=== PATIENT | male | born 1955 | race Caucasian/White ===

== ENCOUNTER 2019-06-03 15:34 | Inpatient (IN) | payer MEDICARE, OTHER ==
[~2019-06-03] VITALS: Ht 185.4 cm; Wt 83.9 kg
[~2019-06-03 15:34] MED LIST: LEXAPRO
[2019-06-03] MEDS ORDERED: ASPI81TA31 PO (15:42)
--- NOTE | 2019-06-03 15:59 | NUR ---
Swab for flu collected and sent to lab.
--- NOTE | 2019-06-03 16:02 | NUR ---
Pt out of ER for CT.
[2019-06-03 16:06] LABS: BASOPHILS % (AUTO) 0.1 % (0.0-2.0); EOSINOPHILS # (AUTO) 0.2 K/uL (0.0-0.7); EOSINOPHILS % (AUTO) 2.1 % (0.0-7.0); HEMATOCRIT 40.9 % (36.7-47.1); HEMOGLOBIN 13.6 g/dL (12.5-16.3); LYMPHOCYTES # (AUTO) 0.5 K/uL (20.0-40.0); LYMPHOCYTES % (AUTO) 4.7 % (20.5-51.5); MEAN CORPUSCULAR HEMOGLOBIN 30.4 uug (23.8-33.4); MEAN CORPUSCULAR HGB CONC 33 g/dL (32.5-36.3); MEAN CORPUSCULAR VOLUME 91.3 fL (73.0-96.2); MONOCYTES # (AUTO) 0.7 K/uL (2.0-10.0); MONOCYTES % (AUTO) 6.9 % (0.0-11.0); NEUTROPHILS % (AUTO) 86.2 % (38.5-71.5); PLATELET COUNT (AUTO) 248 K/uL (152-348); RED BLOOD CELL COUNT(AUTO) 4.48 MIL/uL (4.06-5.63); WHITE BLOOD COUNT (AUTO) 10.5 K/uL (3.6-10.2)
[2019-06-03 16:14] LABS: CREATININE 1.1 mg/dL (0.6-1.3); POTASSIUM 3.8 mmol/L (3.5-5.1)
--- NOTE | 2019-06-03 16:18 | NUR ---
Pt back from CT, resting in bed, VSS. Family at the bedside.
[2019-06-03 16:20] LABS: BILIRUBIN,DIRECT 0.1 mg/dL (0.0-0.2); BILIRUBIN,TOTAL 0.6 mg/dL (0.2-1.0); TOTAL PROTEIN, SERUM 6.4 g/dL (6.4-8.2)
[2019-06-03] MEDS ORDERED: HYDR12.5 PO (17:17)
[2019-06-03] MEDS ORDERED: ATOR20TA PO (17:17)
[2019-06-03] MEDS ORDERED: ESCI10TA PO (17:17)
[2019-06-03 18:00] VITALS: BP 143/67
[2019-06-03] MEDS ORDERED: ACETAMINOPHEN 325 MG TABLET PO PRN (18:15)
[2019-06-03] MEDS ORDERED: ONDANSETRON 4 MG/2 ML VIAL IV PRN (18:15)
[2019-06-03] MEDS ORDERED: TEMAZEPAM 15 MG CAPSULE PO PRN (18:15)
[2019-06-03] MEDS ORDERED: ESZO3TAB27 PO (18:58)
[2019-06-03 19:15] VITALS: BP 145/75
[2019-06-03] MEDS ORDERED: TEMAZEPAM 7.5 MG CAPSULE PO PRN (19:30)
--- NOTE | 2019-06-03 20:00 | NUR ---
Received report from AM nurse, patient is newly admitted to the unit. Complete admission orders pending. Pt is AAOx4, with at bedside. Patient with complaints of nausea and episode of vomiting x 1, large amount of undigested food and liquid. Pt verbalized that it was what he was feeling before he passed out initially this morning. Denied any new food/diet, family ate the same food from night prior and was not sick. Able to walk to the bathroom but noted very pale and verbalizes feeling cold. Instructed patient and to ask for assistance during ambulation since patient is still at risk for falls/syncope. VS taken and within normal parameters. Sinus [address] Ayan Diana notified via message. Dr. Diana came and assessed patient and discussed plan of care to patient/. New orders noted and carried out. Zofran 4mg given via IV. Pending fluids via IV per MD orders. Will continue to monitor patient, will perform neuro checks secondary to the fall.
[2019-06-03 20:15] VITALS: BP 140/76
[2019-06-03] MEDS ORDERED: POTASSIUM CHLORIDE 20 MEQ in IV 1/2NS 1000 ML 1,000 ML IV PRN (20:30)
[2019-06-03] MEDS ORDERED: ATORVASTATIN 20 MG TABLET PO SCH (21:00)
[2019-06-03] MEDS ORDERED: DOCUSATE SODIUM 100 MG CAPSULE PO SCH (21:00)
[2019-06-03] MEDS ORDERED: ESCITALOPRAM OXALATE 10 MG TABLET PO SCH (21:00)
[2019-06-04] VITALS (9 sets, daily range): BP systolic 107–132; BP diastolic 60–67
--- NOTE | 2019-06-04 00:57 | NUR ---
Patient slept at around 2130, aware of NPO status after midnight for CT of abdomen in AM. However, during 0000 rounds, patient's IV appeared pulled out,, replaced site. Placed on L FA, 22 G, and IVF of 20 meqs of K + 1/2 NS running at 60cc/hr. Patient noted with red and flushed face, slightly warm to touch. Vital signs taken and no fever, T: 98.4. BP slightly lower than initial readings from SBP 140 to SBP 110/60. Pt verbalized that he is not nauseated anymore, but does feel the urge to cough. Cough is non productive. Lung sounds clear. On-call paged. Dr. Nunez called back with new orders. Noted and carried out. Pt remains Sinus rhythm on tele at 84. Neuro check done, pt appears to be within baseline level. Will continue to monitor.
[2019-06-04] MEDS ORDERED: GUAIFENESIN/CODEINE 5 ML LIQUID UDC PO PRN (01:00)
--- NOTE | 2019-06-04 05:43 | NUR ---
No further coughing noted. Able to sleep intermittently. No complaints of nausea/vomiting. IVF running as ordered. Neuro checks done. Orthostatic blood pressure not checked, since patient stayed in bed throughout the night and wanted to rest. Will check when patient is up. Fall precautions in place. Bed kept low and bed alarm on. Will continue to monitor.
[2019-06-04 06:37] LABS: BASOPHILS % (AUTO) 0.3 % (0.0-2.0); EOSINOPHILS % (AUTO) 0.3 % (0.0-7.0); HEMATOCRIT 39.3 % (36.7-47.1); HEMOGLOBIN 12.8 g/dL (12.5-16.3); LYMPHOCYTES # (AUTO) 0.8 K/uL (20.0-40.0); LYMPHOCYTES % (AUTO) 7.4 % (20.5-51.5); MEAN CORPUSCULAR HEMOGLOBIN 29.9 uug (23.8-33.4); MEAN CORPUSCULAR HGB CONC 33 g/dL (32.5-36.3); MEAN CORPUSCULAR VOLUME 91.4 fL (73.0-96.2); MONOCYTES # (AUTO) 0.8 K/uL (2.0-10.0); MONOCYTES % (AUTO) 6.8 % (0.0-11.0); NEUTROPHILS # (AUTO) 9.7 K/uL (1.8-8.9); NEUTROPHILS % (AUTO) 85.2 % (38.5-71.5); PLATELET COUNT (AUTO) 223 K/uL (152-348); RED BLOOD CELL COUNT(AUTO) 4.29 MIL/uL (4.06-5.63); WHITE BLOOD COUNT (AUTO) 11.4 K/uL (3.6-10.2)
[2019-06-04] MEDS ORDERED: SWABABLE VALVE TRANSFER SET EA MC ONE (06:59)
[2019-06-04] MEDS ORDERED: IOHEXOL 300MG/ML 100 ML INFUS..BTL ONE (06:59)
[2019-06-04] MEDS ORDERED: BARIUM SULFATE 450 ML ORAL.SUSP ONE (06:59)
[2019-06-04] MEDS ORDERED: IV NORMAL SALINE 250 ML IV ONE (06:59)
[2019-06-04] MEDS ORDERED: PANTOPRAZOLE SODIUM 40 MG TABLET.DR PO SCH (07:00)
[2019-06-04 07:19] LABS: THYROID STIMULATING HORMONE 0.335 mIU/mL (0.358-3.740)
[2019-06-04 07:31] LABS: BILIRUBIN,TOTAL 0.7 mg/dL (0.2-1.0); MAGNESIUM 1.5 mg/dL (1.8-2.4); POTASSIUM 3.6 mmol/L (3.5-5.1); TOTAL PROTEIN, SERUM 5.9 g/dL (6.4-8.2)
--- NOTE | 2019-06-04 08:00 | NUR ---
AWAKE ALERT AND ORIENTED X3 NO SS OF pain or distress, denies nausea and vomiting SR ON MONITOR. CONTINUE TELE MONITORING
[2019-06-04] MEDS ORDERED: HYDROCHLOROTHIAZIDE 12.5 MG CAPSULE PO SCH (09:00)
[2019-06-04] MEDS ORDERED: ASPIRIN 81 MG TAB.CHEW PO SCH (09:00)
[2019-06-04 10:29] LABS: *BILIRUBIN,URIN NEGATIVE (NEGATIVE); *CLARITY,URINE CLEAR (CLEAR); *COLOR,URINE YELLOW (YELLOW); *KETONES,URINE NEGATIVE (NEGATIVE); LEUKOCYTE ESTERASE ,URINE NEGATIVE (NEGATIVE); NITRITE, URINE NEGATIVE (NEGATIVE); UGLUCOSE NEGATIVE (NEGATIVE)
[2019-06-04 11:29] LABS: *BLOOD, URINE TRACE (NEGATIVE)
[2019-06-04 11:31] LABS: BACTERIA,URINE NONE SEEN /HPF (NONE SEEN); SQUAMOUS EPITHELIAL CELL,UR FEW /HPF (NONE SEEN); WBC,URINE 0-3 /HPF (0-3)
[2019-06-04] MEDS ORDERED: POTASSIUM CHLORIDE 20 MEQ POWDER PACKET GT ONE (12:15)
--- NOTE | 2019-06-04 12:26 | NUR ---
WOUND CARE CONSULT: PT PRESENTS WITH DRY ABRASIONS TO LEFT FOREHEAD AND DRY ABRASIONS TO ARMS AND LEFT LEG, PRESENT ON ADMISSION. DEFER TO MD FOR LEFT FOREHEAD SWELLING. WILL SEE PRN. PT IS AMBULATORY AND CONTINENT AT THIS TIME.
--- NOTE | 2019-06-04 13:00 | NUR ---
SEEN BY DR SOTO AND WOUND NURSE SEE NOTES
--- NOTE | 2019-06-04 14:28 | NUR ---
SEEN BY DR ROSALES WITH ORDER FOR DISCHARGE HOME AND FOLLOW UP WITH PRIMARY MD.
[2019-06-04] MEDS ORDERED: MAGNESIUM OXIDE 400 MG TABLET PO ONE (14:45)
--- NOTE | 2019-06-04 15:47 | NUR ---
DISCHARGED HOME STABLE ACCOMPANIED BY FAMILY. MEDICATION INSTRUCTION GIVEN BY PHARMACIST
[2019-06-04] MEDS ORDERED: VANCOMYCIN HCL 500 MG VIAL ONE (23:51)
== END 2019-06-04 15:49 | disposition home or self-care (01) | DRG 640 ==
LOC: ER 15:34 → TELE3 17:20 → MEDSURG3 06-04 12:54
PROVIDERS: ADMIT Internal Medicine; ATTEND Internal Medicine
DX: E86.0 Dehydration (principal); N17.0 Acute kidney failure with tubular necrosis; G31.9 Degenerative disease of nervous system, unspecified; T50.2X5A Adverse effect of carbonic-anhydrase inhibitors, benzothiadiazides and other diuretics, initial encounter; Y92.39 Other specified sports and athletic area as the place of occurrence of the external cause; S00.81XA Abrasion of other part of head, initial encounter; W18.39XA Other fall on same level, initial encounter; Y93.53 Activity, golf; Y99.8 Other external cause status; K40.90 Unilateral inguinal hernia, without obstruction or gangrene, not specified as recurrent; N20.0 Calculus of kidney; K76.0 Fatty (change of) liver, not elsewhere classified; A08.4 Viral intestinal infection, unspecified; F32.9 Major depressive disorder, single episode, unspecified; R00.1 Bradycardia, unspecified; M19.90 Unspecified osteoarthritis, unspecified site; Z79.899 Other long term (current) drug therapy; Z79.82 Long term (current) use of aspirin; I11.9 Hypertensive heart disease without heart failure; E78.5 Hyperlipidemia, unspecified; K57.30 Diverticulosis of large intestine without perforation or abscess without bleeding; Z96.642 Presence of left artificial hip joint
CPT/HCPCS: 36415; 70030-TC; 70450; 71045; 83605; 83735; 84100; 84443; 85025; 85730; 87040; 87086; 87400; 93005; 93307; 93880; A4217; A4663; G0378; J2405; J3370; J3480; J3490; J7050; Q9951; Q9967